=== PATIENT | female | born 1975 | race African-American/Black ===

== ENCOUNTER 2022-12-10 00:09 | Emergency (ER) | payer OTHER ==
[~2022-12-10] VITALS: Ht 162.6 cm; Wt 64.9 kg
--- NOTE | 2022-12-10 01:30 | NUR ---
Patient AOx4, able to esxpress her concerns. Chandler states she has been feeling weak lately, her PCP called her with lab results Hemoglobin of "6.something". Discussed plan of care, chandler verbalized agreement. All safety precautions taken.
[2022-12-10 01:51] LABS: CREATININE 0.7 mg/dL (0.6-1.3); POTASSIUM 3.2 mmol/L (3.5-5.1)
[2022-12-10 01:57] LABS: ALBUMIN 3.7 g/dL (3.4-5.0); BILIRUBIN,DIRECT 0.1 mg/dL (0.0-0.2); BILIRUBIN,TOTAL 0.3 mg/dL (0.2-1.0); TOTAL PROTEIN, SERUM 8.2 g/dL (6.4-8.2)
[2022-12-10 02:08] LABS: BASOPHILS # (AUTO) 0.1 K/uL (0.0-0.2); BASOPHILS % (AUTO) 0.8 % (0.0-2.0); HEMATOCRIT 24 % (33-45); LYMPHOCYTES # (AUTO) 3.3 K/uL (0.8-4.8); LYMPHOCYTES % (AUTO) 50.3 % (20.0-44.0); MEAN CORPUSCULAR HGB CONC 28 g/dl (31.0-36.0); MEAN CORPUSCULAR VOLUME 56 fL (82-100); MONOCYTES # (AUTO) 0.2 K/uL (0.1-1.30); MONOCYTES % (AUTO) 3.4 % (2.0-12.0); NEUTROPHILS # (AUTO) 2.9 K/uL (1.8-8.9); NEUTROPHILS % (AUTO) 44.5 % (43.0-81.0); PLATELET COUNT (AUTO) 275 K/uL (150-450); RED BLOOD CELL COUNT(AUTO) 4.19 MIL/uL (4.0-5.2); WHITE BLOOD COUNT (AUTO) 6.5 K/uL (4.3-11.0)
[2022-12-10 02:11] LABS: HEMOGLOBIN 6.7 g/dL (11.5-14.8)
--- NOTE | 2022-12-10 02:59 | NUR ---
CONSENT OBTAINED FOR BLOOD TRANFUSION
--- NOTE | 2022-12-10 03:08 | NUR ---
COVID ANTIGEN COLLECTED SENT TO LAB
--- NOTE | 2022-12-10 05:26 | NUR ---
BLOOD TRANSFUSION STARTED @05
--- NOTE | 2022-12-10 06:11 | NUR ---
PT STABLE DURING TRANSFUSION AT THIS TIME. VSS. NO ACUTE DISTRESS.
--- NOTE | 2022-12-10 07:03 | NUR ---
BLOOD TRANSFUSION COMPLETED. VSS. NO ACUTE DISTRESS
[2022-12-10 07:22] VITALS: BP 99/66
--- NOTE | 2022-12-10 07:22 | NUR ---
Patient discharged to home in stable condition. Written and verbal after care instructions given. Patient verbalizes understanding of instruction.IV removed. Catheter intact and site benign. Pressure and 4x4 applied to site. No bleeding noted.
[2022-12-10 08:48] LABS: EOSINOPHILS % (MANUAL) 1 % (0-4); LYMPHOCYTES % (MANUAL) 31 % (16-48); MONOCYTES % (MANUAL) 3 % (0-11.0); NEUTROPHILS % (MANUAL) 65 (42-76)
== END 2022-12-10 07:23 | disposition home or self-care (01) ==
LOC: ER 00:10
DX: D64.9 Anemia, unspecified (principal); Z20.822 Contact with and (suspected) exposure to COVID-19
CPT/HCPCS: 99285; 36430; 85025; 80048; 80076; 85007; 36415; 85730; 86850; 84702; 87426; 86923; J7050; P9016; C9803